=== PATIENT | female | born 1980 | race Caucasian/White ===

== ENCOUNTER 2016-03-19 10:32 | Emergency (ER) | payer MEDICAID ==
[~2016-03-19] VITALS: Ht 165.1 cm; Wt 68.5 kg
[~2016-03-19 10:32] MED LIST: NO MEDS
[2016-03-19 10:36] VITALS: Ht 165.1 cm; Wt 68.5 kg
[2016-03-19] MEDS ORDERED: IBUPROFEN 600 MG TAB PO ONE (11:00)
[2016-03-19] MEDS ORDERED: ACETAMINOPHEN/CODEINE #3 TAB PO ONE (11:00)
[2016-03-19] MEDS ORDERED: LIDOCAINE 1% (MDV) 20 ML INJ SC ONE (11:00)
[2016-03-19] MEDS ORDERED: TRIMETHOPRIM/SULFAMETHOX (DS) TAB PO ONE (11:00)
[2016-03-19] MEDS ORDERED: ACET1TAB40 PO (11:37)
[2016-03-19] MEDS ORDERED: BACTDS PO (11:37)
--- NOTE | 2016-03-19 11:41 | ERD ---
ER Documentation Chief Complaint Date/Time DATE: 03/19/16 TIME: 11:39 Chief Complaint PAINFUL BUMP IN RT EAR FIRST NOTICED ON SUNDAY HPI This 35-year-old female complains of a painful bump on the outer right ear canal for last 3 days. She denies any fevers, vomiting, shortness breath or chest pain. She has slight amount of discharge possibly. ROS All systems reviewed and are negative except as per history of present illness. Medications Home Meds Active Scripts Acetaminophen with Codeine (Acetaminophen-Cod #3 Tablet) 1 Each Tablet, 1 TAB PO Q6H Y for PAIN, #10 TAB Prov:KRYSTLE JAIMES MD 03/19/16 Sulfamethoxazole-Trimethoprim* (Bactrim* DS) 800-160 Mg Tab, 1 TAB PO BID for 7 Days, TAB Prov:KRYSTLE JAIMES MD 03/19/16 Reported Medications [No Meds] No Conflict Check 07/11/13 Allergies Allergies: Coded Allergies: No Known Drug Allergy (Verified Allergy, Unknown, 07/11/13) PMhx/Soc Medical and Surgical Hx: pt denies Medical Hx History of Surgery: Yes (CSECT X3) Physical Exam Vitals Vital Signs Date Time Temp Pulse Resp B/P Pulse Ox O2 Delivery O2 Flow Rate FiO2 03/19/16 10:36 98.5 71 16 132/72 98 Physical Exam Const: [] Alert, [id number]. Head: Atraumatic Eyes: Normal Conjunctiva ENT: Normal External Ears, Nose and Mouth. There is a palpable fluctuant erythematous lesion was excised the right external auditory canal. There is no mastoid tenderness, facial erythema or induration. Neck: Full range of motion..~ No meningismus. Resp: Clear to auscultation bilaterally Cardio: Regular rate and rhythm, no murmurs Abd: Soft, non tender, non distended. Normal bowel sounds Skin: No petechiae or rashes Back: No midline or flank tenderness Ext: No cyanosis, or edema Neur: Awake and alert Psych: Normal Mood and Affect Results 24 hrs Current Medications Medications (Trade) Dose Ordered Sig/Adriana Route PRN Reason Start Time Stop Time Status Last Admin Dose Admin Ibuprofen (Motrin) 600 mg ONCE ONCE PO 03/19/16 11:00 03/19/16 11:01 DC Acetaminophen/ Codeine Phosphate (Tylenol No.3) 1 tab ONCE ONCE PO 03/19/16 11:00 03/19/16 11:01 DC Lidocaine (Xylocaine 1% (Mdv) 20 ml) 20 ml ONCE ONCE SC 03/19/16 11:00 03/19/16 11:01 DC Trimethoprim/ Sulfamethoxazole (Bactrim (Ds)) 1 tab ONCE ONCE PO 03/19/16 11:00 03/19/16 11:01 DC Procedures/MDM Patient presents with signs and symptoms of a external ear canal abscess. Patient was given Bactrim double strength by mouth, Tylenol No. 3 ibuprofen. Procedure note-the right external auditory canal and ear were prepped with Betadine. 1 cc of lidocaine was used for local infiltration. #11 scalpel was used to incise the area of fluctuance. Additionally 1 cc of pus and some sebaceous type material was expressed. The lesion was small and was not packed. Patient tolerated procedure well. The wound was dressed. Patient was discharged home with a prescription of Bactrim double strength, Tylenol 3 and ibuprofen. Patient is advised to have a wound check in 2 days and otherwise return sooner for fevers, worsening redness, new or worsening symptoms. The patient was stable with no new complaints during the ER course. Clinically, there is no current evidence to suggest meningitis, sepsis, acute abdomen, pneumonia, acute coronary syndrome, pulmonary embolism, or any other emergent condition appearing to require further evaluation or hospitalization. The patient should certainly return for any new or worsening symptoms per the aftercare instructions. They should otherwise follow-up with her primary care doctor for reevaluation this week. Departure Diagnosis: Primary Impression: Abscess Additional Impression: Right ear pain Condition: Stable Patient Instructions: Abscess, Incision And Drainage Additional Instructions: Cheque otro vez con graham doctor primario en el proximo singh or regresa para mas o nueva simptomas. KRYSTLE JAIMES MD Mar 19, 2016 11:41
== END 2016-03-19 11:51 | disposition home or self-care (01) ==
LOC: FTE 10:32
DX: H60.01 Abscess of right external ear (principal); H92.01 Otalgia, right ear
CPT/HCPCS: 69000; Z7502; Z7610